=== PATIENT | male | born 1995 | race Hispanic/Latino ===

== ENCOUNTER 2017-08-12 09:27 | Emergency (ER) | payer OTHER ==
[~2017-08-12] VITALS: Ht 175.3 cm; Wt 79.4 kg
[2017-08-12] MEDS ORDERED: PROTONIX40 MG PO (11:06)
== END 2017-08-12 11:40 | disposition home or self-care (01) ==
LOC: ED 09:27
DX: K21.9 Gastro-esophageal reflux disease without esophagitis (principal)
CPT/HCPCS: 80053; 81001; 82150; 83690; 85025; 99283

== ENCOUNTER 2023-07-17 11:08 | Emergency (ER) | payer OTHER ==
[~2023-07-17] VITALS: Ht 175.3 cm; Wt 72.6 kg
[~2023-07-17 11:08] MED LIST: PROTONIX40 MG PO
--- OUTSIDE RECORDS SUMMARY | 2023-07-17 11:16 | XMS ---
PreManage Notification: LINDA MCCLENDON Security Hand Painter Events No recent Security Events currently on file CRITERIA MET - Group Notification CARE PROVIDERS -Komal- Dentist: Junior Network Administrator [facility] PHONE: [phone] Tayler Sharma-Jarod Nurse Practitioner: Family Current PHONE: [phone] Dalton has no Care Guidelines for this patient. EFroylan VISIT COUNT (12 MO.) 1 [facility] TOTAL 1 NOTE: Visits indicate total known visits. ED/UCC VISIT TRACKING (12 MO.) 07/17/2023 11:09 [facility] [place] TYPE: Emergency COMPLAINT: - MEDICATION REACTION INPATIENT VISIT TRACKING (12 MO.) No inpatient visits to display in this time frame [email or web address]
[2023-07-17] MEDS ORDERED: PROPRANOLOL HCL10 MG PO (13:22)
[2023-07-17] MEDS ORDERED: ZOLOFT50 MG PO (13:22)
[2023-07-17 14:05] LABS: BASOPHILS 1.2 % (0-2); EOSINOPHILS 0.8 % (0-6); HEMATOCRIT 49.2 % (35.0-50.0); LYMPHOCYTES 12.3 % (24-44); MCH 32.5 (27-36); MCHC 34.4 g/dl (30-36); MCV 94.5 fl (81-99); MONOCYTES 13.6 % (0-12); NEUTROPHILS 72.1 % (39-80); PLATELET COUNT 132 K/uL (140-440); RBC 5.21 M/ul (4.3-5.7); RDW 12.7 (10.5-15.0)
[2023-07-17 14:31] LABS: MAGNESIUM 1.6 mg/dL (1.8-2.4); TSH, 3RD GENERATION 4.03 uIU/mL (0.358-3.740)
[2023-07-17 15:26] LABS: ALBUMIN 3.9 g/dL (3.4-5.0); ALBUMIN/GLOBULIN RATIO 0.91 (1.1-2.4); ANION GAP 14.1 (7-21); BILIRUBIN, TOTAL 2.3 ng/dL (0.2-1.0); BUN/CREATININE RATIO 14.86 (6.0-28.6); CALCIUM 9.8 mg/dL (8.5-10.1); CREATININE, SERUM 0.74 mg/dL (0.70-1.30); POTASSIUM 4.1 mmol/L (3.5-5.1); PROTEIN, TOTAL 8.2 g/dL (6.4-8.2)
[2023-07-17] MEDS ORDERED: ONDANSETRON ODT8 MG PO (15:45)
[2023-07-17] MEDS ORDERED: CHLORDIAZEPOXID25 MG PO (15:45)
[2023-07-17 15:57] VITALS: BP 170/108
== END 2023-07-17 15:57 | disposition home or self-care (01) ==
LOC: ED 11:08
PROVIDERS: Emergency Medicine
DX: F10.10 Alcohol abuse, uncomplicated (principal); Z79.899 Other long term (current) drug therapy
CPT/HCPCS: 36415; 80053; 83735; 84443; 85025; 99283; A9270-GY; G0480

== ENCOUNTER 2024-05-15 22:24 | Emergency (ER) | payer OTHER ==
[~2024-05-15] VITALS: Ht 180.3 cm; Wt 77.0 kg
--- OUTSIDE RECORDS SUMMARY | 2024-05-15 22:25 | XMS ---
PreManage Notification: LINDA MCCLENDON Security Bus Greaser Events No recent Security Events currently on file CRITERIA MET - Group Notification CARE PROVIDERS -[facility]ajma Dental+ Dentist: Vrt Mechanic [facility] PHONE: [phone] -Komal- Dentist: Vrt Mechanic [facility] PHONE: [phone] Dalton has no Care Guidelines for this patient. Mathew VISIT COUNT (12 MO.) 2 [facility] 2 [facility] TOTAL 4 NOTE: Visits indicate total known visits. ED/UCC VISIT TRACKING (12 MO.) 05/15/2024 22:24 [facility] [place] TYPE: Emergency COMPLAINT: - WEAKNESS 08/23/2023 08:[address] 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
[2024-05-15] MEDS ORDERED: MULTIVITAMINS 10 ML,FOLIC ACID 1 MG,THIAMINE HCL 100 MG in SODIUM CHLORIDE 0.9% 1,000 ML IV ONE (23:30)
[2024-05-15] MEDS ORDERED: FOLIC ACID 1 MG/0.2 ML ML ONE (23:31)
[2024-05-16 00:04] LABS: MCH 32.3 (27-36); MCHC 33.6 g/dl (30-36)
[2024-05-16 00:06] LABS: BASOPHILS 3.4 % (0-2); EOSINOPHILS 0.5 % (0-6); HEMATOCRIT 43.6 % (35.0-50.0); HEMOGLOBIN 14.7 g/dL (12.0-18.0); LYMPHOCYTES 11.9 % (24-44); NEUTROPHILS 73.2 % (39-80); RBC 4.54 M/ul (4.3-5.7); RDW 14.8 (10.5-15.0)
[2024-05-16 00:07] LABS: ALBUMIN 3.1 g/dL (3.4-5.0); ALBUMIN/GLOBULIN RATIO 0.56 (1.1-2.4); ANION GAP 14.5 (7-21); BILIRUBIN, TOTAL 4.1 ng/dL (0.2-1.0); BUN/CREATININE RATIO 8.86 (6.0-28.6); CALCIUM 8.6 mg/dL (8.5-10.1); CREATININE, SERUM 0.79 mg/dL (0.70-1.30); POTASSIUM 3.5 mmol/L (3.5-5.1); PROTEIN, TOTAL 8.6 g/dL (6.4-8.2)
[2024-05-16 00:09] LABS: PLATELET COUNT 35 K/uL (140-440)
[2024-05-16] MEDS ORDERED: MAGNESIUM OXIDE 400 MG TABLET PO ONE (00:45)
[2024-05-16 02:15] VITALS: BP 143/99
== END 2024-05-16 02:20 | disposition home or self-care (01) ==
LOC: ED 22:24
PROVIDERS: Internal Medicine
DX: F10.129 Alcohol abuse with intoxication, unspecified (principal); Y90.8 Blood alcohol level of 240 mg/100 ml or more; E86.0 Dehydration; I10 Essential (primary) hypertension; Z79.899 Other long term (current) drug therapy
CPT/HCPCS: 36415; 80053; 85025; 85060; 96365; 96366; 99284-25; G0480; J3411; J7030

== ENCOUNTER 2024-08-31 08:31 | Emergency (ER) | payer OTHER ==
[~2024-08-31] VITALS: Ht 180.3 cm; Wt 71.8 kg
[~2024-08-31 08:31] MED LIST changes: +CHLORDIAZEPOXID25 MG PO; +KLONOPIN1 MG PO; +ONDANSETRON ODT8 MG PO; +PROPRANOLOL HCL10 MG PO; +ZOLOFT50 MG PO
--- OUTSIDE RECORDS SUMMARY | 2024-08-31 08:38 | XMS ---
PreManage Notification: LINDA MCCLENDON Security Seed Specialist Events No recent Security Events currently on file CRITERIA MET - Group Notification CARE PROVIDERS -Najma Dental+ Dentist: Seeing Eye Dog Trainer [facility] Komal PHONE: [phone] -Najma Dental+ Dentist: Seeing Eye Dog Trainer [facility] PHONE: [phone] -Komal- Dentist: Seeing Eye Dog Trainer Current [facility] PHONE: [phone] Dalton has no Care Guidelines for this patient. E.DMarco Antonio VISIT COUNT (12 MO.) 2 [facility] TOTAL 2 NOTE: Visits indicate total known visits. ED/UCC VISIT TRACKING (12 MO.) 08/31/2024 08:32 [facility] [place] TYPE: Emergency COMPLAINT: - SLEEP PROBLEM 05/15/2024 22:24 [facility] [place] TYPE: Emergency COMPLAINT: - WEAKNESS DIAGNOSES: - Alcohol abuse with intoxication, unspecified - Blood alcohol level of 240 mg/100 ml or more - Dehydration - Essential (primary) hypertension - Other intermodal dispatcher (current) drug therapy - Weakness INPATIENT VISIT TRACKING (12 MO.) No inpatient visits to display in this time frame [email or web address]
[2024-08-31] MEDS ORDERED: LORazepam 2 MG/ML VIAL IV ONE ×2 (10:15→11:45)
[2024-08-31] MEDS ORDERED: LORazepam 1 MG TAB PO ONE (10:15)
[2024-08-31] MEDS ORDERED: SODIUM CHLORIDE 0.9% 1,000 ML IV PRN (10:15)
[2024-08-31 10:45] LABS: BILIRUBIN, URINE POSITIVE (negative); BLOOD/HGB, URINE NEGATIVE (Negative); KETONE, URINE SMALL (Negative); LEUK ESTERASE, URINE TRACE (negative); NITRITE, URINE POSITIVE (negative); PH, URINE 6.5 (5-7)
[2024-08-31 10:50] LABS: BASOPHILS 1.8 % (0-2); HEMATOCRIT 38.8 % (35.0-50.0); HEMOGLOBIN 13.3 g/dL (12.0-18.0); LYMPHOCYTES 8.7 % (24-44); MCH 34.3 (27-36); MCHC 34.3 g/dl (30-36); MONOCYTES 12.5 % (0-12); RBC 3.88 M/ul (4.3-5.7); RDW 14.8 (10.5-15.0)
[2024-08-31 10:55] LABS: BACTERIA, URINE 1+ /hpf (negative); CASTS, URINE NONE SEEN \\lpf; COLLECTION TYPE, URINE CLEAN CATCH; CRYSTALS, URINE NONE SEEN (0-1+); EPITHELIAL CELLS, URINE SQUAMOUS 1+ /lpf (0-1+); RED BLOOD CELLS, URINE 0-1 /hpf (0-5); REFLEX CULTURE, URINE Yes (No); WHITE BLOOD CELLS, URINE 21-40 /HPF (0-5)
[2024-08-31 11:01] LABS: INR 1.61 (0.80-1.30); PROTIME 18.8 Sec (11.2-14.2)
[2024-08-31 11:06] LABS: ALBUMIN/GLOBULIN RATIO 0.48 (1.1-2.4); ANION GAP 13.1 (7-21); BILIRUBIN, TOTAL 8.5 ng/dL (0.2-1.0); BUN/CREATININE RATIO 9.33 (6.0-28.6); CALCIUM 9.5 mg/dL (8.5-10.1); CREATININE, SERUM 0.75 mg/dL (0.70-1.30); POTASSIUM 3.1 mmol/L (3.5-5.1); PROTEIN, TOTAL 9.2 g/dL (6.4-8.2)
[2024-08-31 11:12] LABS: PLATELET COUNT 35 K/uL (140-440)
[2024-08-31] MEDS ORDERED: TRAMADOL HCL50 MG PO (12:15)
[2024-08-31 12:32] VITALS: BP 102/61
[2024-08-31] MEDS ORDERED: TRAZODONE HCL50 MG PO (15:00)
== END 2024-08-31 12:32 | disposition home or self-care (01) ==
LOC: ED 08:31
PROVIDERS: Emergency Medicine
DX: G47.00 Insomnia, unspecified (principal); F10.139 Alcohol abuse with withdrawal, unspecified; K72.90 Hepatic failure, unspecified without coma; I10 Essential (primary) hypertension
CPT/HCPCS: 36415; 80053; 81001; 83690; 85025; 85060; 85610; 87088; 96374; 96376; 99283-25; J2060; J7030

== ENCOUNTER 2024-08-31 14:42 | Inpatient (IN) | payer OTHER ==
[2024-08-31] VITALS (8 sets, daily range): BP systolic 100–154; BP diastolic 56–114
[~2024-08-31] VITALS: Ht 180.3 cm; Wt 73.0 kg
[~2024-08-31 14:42] MED LIST changes: +TRAMADOL HCL50 MG PO
--- OUTSIDE RECORDS SUMMARY | 2024-08-31 14:49 | XMS ---
PreManage Notification: LINDA MCCLENDON Security Heel Brusher Events No recent Security Events currently on file CRITERIA MET - Group Notification - [facility] - 2 Visits in 30 Days CARE PROVIDERS -Najma Dental+ Dentist: Manager Environmental Affairs Current [facility] PHONE: [phone] -Najma Dental+ Dentist: Manager Environmental Affairs [facility] PHONE: [phone] -Komal- Dentist: Manager Environmental Affairs Current [facility] PHONE: [phone] Dalton has no Care Guidelines for this patient. E.D. VISIT COUNT (12 MO.) 3 [facility]ORM [facility] TOTAL 3 NOTE: Visits indicate total known visits. ED/UCC VISIT TRACKING (12 MO.) 08/31/2024 14:43 [facility] [place] TYPE: Emergency COMPLAINT: - FEVER/HALLUCINATIONS 08/31/2024 08:32 [facility] [place] TYPE: Emergency COMPLAINT: - SLEEP PROBLEM 05/15/2024 22:[address] [facility] [place] TYPE: Emergency COMPLAINT: - WEAKNESS DIAGNOSES: - Alcohol abuse with intoxication, unspecified - Blood alcohol level of 240 mg/100 ml or more - Dehydration - Essential (primary) hypertension - Other detention (current) drug therapy - Weakness INPATIENT VISIT TRACKING (12 MO.) No inpatient visits to display in this time frame [email or web address]
[2024-08-31] MEDS ORDERED: TRAZODONE HCL50 MG PO (15:00)
[2024-08-31] MEDS ORDERED: CEFTRIAXONE/SODIUM CHLORIDE 1 GM/100 ML PIGGYBACK IV ONE (15:15)
[2024-08-31 15:41] LABS: AMPHETAMINES, URINE NEGATIVE (NEGATIVE); BARBITURATES, URINE NEGATIVE (NEGATIVE); BENZODIAZEPINE, URINE NEGATIVE (NEGATIVE); BUPRENORPHINE, URINE NEGATIVE (NEGATIVE); CANNABINOID, URINE POSITIVE (NEGATIVE); COCAINE, URINE NEGATIVE (NEGATIVE); ECSTASY, URINE NEGATIVE (NEGATIVE); FENTANYL, URINE NEGATIVE (NEGATIVE); METHADONE, URINE NEGATIVE (NEGATIVE); OPIATES, URINE POSITIVE (NEGATIVE); OXYCODONE, URINE NEGATIVE (NEGATIVE); PHENCYCLIDINE, URINE NEGATIVE (NEGATIVE)
[2024-08-31] MEDS ORDERED: LACTULOSE 20 GM/30 ML CUP PO ONE (16:15)
[2024-08-31] MEDS ORDERED: LORazepam 2 MG/ML VIAL IV ONE (16:15)
[2024-08-31 17:15] LABS: BILIRUBIN, DIRECT 4.1 mg/dL (0.0-0.2); BILIRUBIN, INDIRECT 3.9 (0.1-0.7)
[2024-08-31] MEDS ORDERED: PHENOBARBITAL SOD 130 MG/ML VIAL IV ONE (17:15)
[2024-08-31] MEDS ORDERED: LORazepam 2 MG/ML VIAL IV/IM PRN ×2 (17:15→22:00)
[2024-08-31] MEDS ORDERED: THIAMINE HCL 100 MG,FOLIC ACID 1 MG,MULTIVITAMINS 10 ML in SODIUM CHLORIDE 0.9% 1,000 ML IV ONE (17:15)
--- NOTE | 2024-08-31 17:40 | NUR ---
PT ARRIVES TO FLOOR VIA STRETCHER WITH ED RN AND SISTER. PT PIVOT TRANSFERS TO BED WITH SOME SHAKYNESS NOTED. PT FOLLOWING COMANDS BUT INTERMITANTLY DISORIENTED, AND ATTENDING TO VISUAL HALUCINATIONS. ADMISSION ASSESSMENT STARTED.
--- NOTE | 2024-08-31 18:26 | NUR ---
ADMISSION ASSESSMENT COMPLETE - HEALTH HISTORY QUESTIONS COMPLETED WITH SISTERS ASSISTANCE. PT DROWSY IN BED, REDIRECTABLE AND FOLLOWS COMANDS. TACHICARDIC AT REST, 120'S. CIWA 15 PRIOR TO PHENOBARBITAL ADMINISTRATION SIGNIFICANT FOR VISUAL HALLUCINATIONS, DISORIENTATION AND LIGHT SENSITIVE. PT C/O ABD PAIN WITH PALPATION. REPORTS FREQUENT DIARHEA AND ANTACID USE. SISTER STATES PT OFTEN HAS BLOOD ON PILLOW IN MORNING FROM COUGHING AT NIGHT. BED ALARM ON, SISTER AT BEDSIDE HELPING REDIRECT PT.
--- NOTE | 2024-08-31 19:05 | NUR ---
RN IN ROOM TO RESPOND TO CALL LIGHT - PT NOTED TO HAVE BLOOD IN MOUTH, WITHOUT VISUALIZED INJURY. POTENTIALLY AFTER COUGHING. MD IN ROOM TO ASSESS. SISTER ENDORSES THIS HAPPENS FREQUENTLY. CT ORDERED.
--- NOTE | 2024-08-31 19:20 | NUR ---
PT ASSISTED UP TO BED SIDE COMMODE - 2 PERSON ASSIST. HR ELEVATED TO 140 WITH STANDING. PT ABLE TO FOLLOW COMMANDS WITH REPITITION. BACK TO BED WITH BED ALARM ON. STAFF IN SIGHT OF ROOM WITH CURTAIN OPEN.
--- NOTE | 2024-08-31 20:00 | NUR ---
PT TAKEN DOWN TO IMAGING FOR CT SCAN OF ABD/PELVIS/CHEST. PT IS CALM, CONFVUSED BUT COOPERATIVE.
--- NOTE | 2024-08-31 20:15 | NUR ---
1MG IV ATIVAN GIVEN FOR SX OF WITHDRAWAL, PT HAS BEGUN TO BE MORE RESTLESS, DOES REPORT HALLUCINATIONS, DENIES HEADACHE, DENIES NAUSEA, VERY SLIGHT TREMOR NOTED.
[2024-08-31] MEDS ORDERED: LACTULOSE 20 GM/30 ML CUP PO SCH (21:00)
--- NOTE | 2024-08-31 21:12 | NUR ---
PT CONT TO ESCALATE IN AGITATION, TRYING TO GET OUT OF BED, VERY INSISTENT ON LEAVING, NOT REDIRECTABLE AND NOT ORIENTED AT THIS TIME. MD NOTIFIED, PRECEDEX DRIP STARTED, SEE FLOWSHEET.
--- NOTE | 2024-08-31 21:59 | NUR ---
UPDATE MD ON PTS NAUSEA AND PRECEDEX DRIP, ORDER GIVEN FOR ZOFRAN PRN.
[2024-08-31] MEDS ORDERED: ondansetron HCL 4 MG/2 ML VIAL IV PRN (22:00)
--- NOTE | 2024-08-31 22:50 | NUR ---
PT RESTFUL, BED ALARM ON, FAMILY IN ROOM. PRECEDEX DRIP CONT TO INFUSE.
--- NOTE | 2024-08-31 23:00 | NUR ---
PT HAS BEEN LYING IN BED, NOT TRYING TO GET UP. HE HAS BEEN MAKING FREQUENT VOCAL SOUNDS. AT ONE POINIT, FAMILY WAS ASKING QUESTIONS REGARDING THE PLAN OF CARE FOR THE NIGHT WHEN THE PT SUDDENLY STARTED MAKING RETCHING SOUNDS, GURGLING NOTED IN THROAT, MOUTH HAD DONOVAN RED BLOOD. PT WAS IMMEDIATELY REPOSITIONED UP FOR AIRWAY PROTECTION AND MOUTH WAS SUCTIONED OF SCANT AMT OF BLOOD. MOUTH CLEANED OUT WITH WASHCLOTH TO TRY TO DETERMINE SOURCE, IT APPEARS THAT PTS GUMS MIGHT POSSIBLY BE OOZING BLOOD. PT LEFT IN POSITION FOR AIRWAY PROTECTION WITH RN TO REMAIN AT BEDSIDE. 4MG IV ZOFRAN WAS GIVEN AND RETCHING STOPPED, PT STILL NEEDING OCC ORAL SUCTION OF SECRETIONS AND BLOOD. PRECEDEX DRIP WAS INITIALLY TURNED DOWN AND THEN OFF. PT REMAINS ON CONT CARDIAC/SPO2 MONITORING. SPO2 99% ON ROOM AIR, VSS.
[2024-09-01] VITALS (33 sets, daily range): BP systolic 88–134; BP diastolic 47–91
--- NOTE | 2024-09-01 01:54 | NUR ---
PT REMAINS SLEEPING WITH PRECEDEX DRIP OFF. MOTHER IS STAYING THE NIGHT, SISTER LEAVING NOW. PT SNORING LIGHTLY, SPO2 98%, HR 80'S, RR 16, NO SECRETIONS NOTED IN MOUTH. BED ALARM ON.
--- NOTE | 2024-09-01 04:50 | NUR ---
PT HAD CONTINUED TO REST IN BED WITH NO ATTEMPTS TO TRY TO GET UP. PT WOKE AT 0405. HE SEEMED MUCH LESS AGITATED BEFORE HE WENT TO SLEEP, HE INDICATES NEED TO USE BATHROOM. HE WAS INC LOOSE STOOL ON THE WAY TO THE BATHROOM, SAT ON TOILET AND HAD LARGE LOOSE STOOL THEN WAS TAKEN TO SHOWER TO BE CLEANED UP. PT WAS ABLE TO ASSIST WITH SHOWERING HIMSELF, STILL A LITTLE UNSTEADY ON HIS FEET, SHOWER CHAIR WAS USED FOR TRANSPORT. CIWA AT THIS TIME IS 12, AFTER SHOWER PT DENIES NAUSEA, DOES REPORT HEADACHE BUT STATES "IM TIRED, I WANT TO GO TO SLEEP". PT BACK TO SLEEP WITH BED RAILS UP AND BED ALARM ON.
--- NOTE | 2024-09-01 05:25 | NUR ---
AM LABS DRAWN FROM SALINE LOCK. PT STATES "IM STARTING TO FEEL THE WITHDRAWAL," NOT ABLE TO CLARIFY WHAT SX HE IS FEELING. HE DENIES HEADACHE, NAUSEA, HALLUCINATIONS. 2MG IV ATIVAN GIVEN. BED ALARM ON. REMAINS WITH RN ONE/ONE.
[2024-09-01 05:27] LABS: BASOPHILS 1.5 % (0-2); EOSINOPHILS 2.2 % (0-6); HEMATOCRIT 33.9 % (35.0-50.0); HEMOGLOBIN 11.7 g/dL (12.0-18.0); LYMPHOCYTES 11.1 % (24-44); MCH 34.6 (27-36); MCHC 34.7 g/dl (30-36); MCV 99.8 fl (81-99); NEUTROPHILS 70.2 % (39-80); RBC 3.39 M/ul (4.3-5.7)
[2024-09-01 05:36] LABS: PLATELET COUNT 39 K/uL (140-440)
[2024-09-01 06:02] LABS: ALBUMIN 2.6 g/dL (3.4-5.0); ALBUMIN/GLOBULIN RATIO 0.48 (1.1-2.4); ANION GAP 14.3 (7-21); BILIRUBIN, TOTAL 8.1 ng/dL (0.2-1.0); BUN/CREATININE RATIO 10.58 (6.0-28.6); CALCIUM 8.7 mg/dL (8.5-10.1); CREATININE, SERUM 0.85 mg/dL (0.70-1.30); MAGNESIUM 1.8 mg/dL (1.8-2.4); POTASSIUM 3.3 mmol/L (3.5-5.1)
[2024-09-01] MEDS ORDERED: POTASSIUM CHLORIDE 10 MEQ TABCR PO ONE (07:00)
[2024-09-01] MEDS ORDERED: DEXTROSE 5% IV ONE (07:30)
[2024-09-01] MEDS ORDERED: ACETYLCYSTEINE IV ONE (07:30)
--- NOTE | 2024-09-01 07:30 | NUR ---
1;1 STAFF AT BEDSIDE, REPORT FROM SUJATA, SHE SPOKE WITH AND IS PUTTING IN NEW ORDERS.
[2024-09-01] MEDS ORDERED: FOLIC ACID 1 MG TAB PO SCH (08:00)
[2024-09-01] MEDS ORDERED: THIAMINE HCL 100 MG TAB PO SCH (08:00)
[2024-09-01 08:17] LABS: INR 1.79 (0.80-1.30); PROTIME 20.4 Sec (11.2-14.2)
[2024-09-01 08:50] LABS: ABO A; RH NEGATIVE
[2024-09-01 08:59] LABS: ABO A; ANTIBODY SCREEN NEGATIVE; RH NEGATIVE
[2024-09-01] MEDS ORDERED: CEFTRIAXONE/SODIUM CHLORIDE 1 GM/100 ML PIGGYBACK IV SCH (09:00)
--- NOTE | 2024-09-01 09:06 | NUR ---
PT CIWA HIGH, THINKS WE ARE IN AN APPARTMENT, DOES NOT KNOW EVENT OR PLACE. MOM IN ROOM PT UP IN BED EATING MEAL WITH SITTER IN ROOM.
--- NOTE | 2024-09-01 09:23 | NUR ---
pt awake hob up doing oral care - gums appear to have old dry blood on lips and mouth dr aware.
[2024-09-01 09:25] LABS: ACETAMINOPHEN 0 ug/mL (10-30)
--- NOTE | 2024-09-01 09:39 | NUR ---
IN ROOM WITH PT AND MOM, RN PRESENT. PT CONFUSED.
--- NOTE | 2024-09-01 09:41 | NUR ---
[place] VIDEO INTERPRETATION TO PT AND MOTHER WITH
--- NOTE | 2024-09-01 09:59 | NUR ---
pt unsteady up to br with 1-2 person assist to amb. safely to toilet - liquid bm noted. pt back to bed, hr 124. bed alarm on and sitter in room with mom and patient back to bed. he is confused, denies hallucinations or head ache, not oriented to situation, event, time, date or place.
[2024-09-01] MEDS ORDERED: LORazepam 2 MG/ML VIAL IV/IM PRN ×2 (11:30→17:30)
[2024-09-01] MEDS ORDERED: PHARMACY RENAL DOSE ADJUSTMENT 1 DOSE MISC PO SCH (12:00)
--- NOTE | 2024-09-01 13:45 | NUR ---
Spoke with pt and his girlfriend, Hailey. Mom is sleeping on the couch. Pt lives with his mom and girfriend in [place]. Pt does not use any DME. Pt admitted for Hepatic encephalopathy and is jaudiced. Discussed with pt his alcohol use and he feels he over uses alcohol. Pt currently drinking 1 pint of whisky per day. Pt is agreeable to IP alcohol rehab and speaking with [facility]. Pt in need of a pcp. Pt [facility] like [facility] use [facility] and I will send his chart requesting a pcp. I will contact [facility]. It is unclear if they will be able to visit as yesterday they had two peer people out for the week.
--- NOTE | 2024-09-01 14:30 | NUR ---
Called and spoke with Solange at [facility]. They do not have anyone to visit today. They can contact the pt by phone. I gave them his number and they will call him today.
--- NOTE | 2024-09-01 15:20 | NUR ---
UR CLINICAL REVIEW: [facility]- MEETS INPT CRITERIA FOR FOR AMS. ODS [facility] INPT 08/31/24 @ 1701 ORDER MATCHES REG WILL SEND CLINICAL FOR AUTH REVIEW DISCHARGE PENDING FURTHER EVALUATION 09/03/24
--- NOTE | 2024-09-01 15:21 | NUR ---
CURRENT ILLNESS PRINTED EDUCATION GIVEN TO PT AND GIRLFRIEND IN TURKISH PER REQUEST, AND TO MOTHER IN PERSIAN. PT GIVEN ENULOSE AND DISCUSSED EDUCATION. CALL LIGHT IN REACH, FAMILY AT SIDE.
--- NOTE | 2024-09-01 16:07 | NUR ---
Chart faxed to [facility] requesting Luis Thompson NP as pts pcp.
--- NOTE | 2024-09-01 16:55 | NUR ---
PT INC OF LOOSE STOOL, AMB TO BR WITH MAX ASSIST. UNSTEADY, CONFUSED, MOM IN ROOM. PT BACK TO BED WITH ALARM ON AND LINEN CHANGE.
--- NOTE | 2024-09-01 17:13 | NUR ---
this rn spoke with dr nash about pt consusion and hallucinations increasing. pt is "making papusa" in his bed, mom at side admits that pt is hallucinating. and pulling at iv. wrapped iv. pt hob up high for meal. rn cut food to bite size and pt is eating meal with family at side. dr advised to increase ativan.
--- NOTE | 2024-09-01 17:38 | NUR ---
PT AMB WITH MAX ASSIST TO HAVE LOOSE BM, AMB BACK TO BED, ALARM ON.
--- NOTE | 2024-09-01 18:50 | NUR ---
PT EYES CLOSED, GF AT BEDSIDE, RESP RATE 18, HR 99, BED ALARM ON. BLANKET AND PILLOW TO GF AND MOM.
--- NOTE | 2024-09-01 19:01 | NUR ---
RN CALLED AND ASKED TO SEE PT AND CONCERNED FOR ACITES, PT VERY ANXIOUS, AND RN ASSISTED PT WITH IS, SL IV PER .
--- NOTE | 2024-09-01 20:00 | NUR ---
NURSE PERFORMED ASSESSMENT AND OBTAINED VITAL SIGNS. PATIENT STILL CONFUSED AND AGITATED. PATIENT ATTEMPTING TO GET OUT OF BED. NURSE AND PATIENT'S GIRLFRIEND ASSISTED PATIENT OUT OF BED. PATIENT HAD ONCE EPISODE OF DIARRHEA - MEDIUM IN SIZE, BROWN IN COLOR. PATIENT ALSO VOIDED 1 TIME. PATIENT CONFUSED. ALERT TO SELF AND PLACE. PATIENT DISORIENTED TO TIME AND SITUATION. PATIENT REQUIRED FREQUENT CUES AND VERBAL REDIRECTION. NURSE PROVIDED PERICARE. NURSE ASSISTED PATIENT BACK TO BED. CALL LIGHT AND BEDSIDE TABLE WITHIN REACH. PATIENT'S MOTHER AND GIRLFRIEND REMAIN AT BEDSIDE. NURSE TO MEDICATE PATIENT PER CIWA SCORE ORDERED.
--- NOTE | 2024-09-01 22:33 | NUR ---
PT UP TO BR AND BACK TO BED, 1 PA. PT TOLERATED WELL. IV FLUIDS INFUSING PER ORDER. PT AND FAMILY STATE NO OTHER NEEDS. CALL LIGHT IN REACH, BED RAILS UP, FMAILY IN ROOM.
[2024-09-02] VITALS (24 sets, daily range): BP systolic 84–137; BP diastolic 46–92
--- NOTE | 2024-09-02 | NUR ---
PATIENT BACK IN BED FROM USING BATHROOM. PATIENT ALERT AND ORIENTED TO SELF, PLACE & SITUATION AT THIS TIME. PATIENT DISORIENTED TO TIME OF DAY AND DATE. NURSE PERFORMED ASSESSMENT AND OBTAINED VITAL SIGNS. VITAL SIGNS STABLE. NURSE OBSERVED PATIENT TO HAVE A SLIGHTLY UNSTEADY GAIT. PATIENT IS A ONE PERSON ASSIST WHEN AMBULATING TO THE BATHROOM. PATIENT DENIES ANY PAIN AT THIS TIME. CIWA SCORE 6. CALL LIGHT AND BEDSIDE TABLE WITHIN REACH. PATIENT'S MOTHER AND GIRLFRIEND REMAIN AT THE BEDSIDE.
--- NOTE | 2024-09-02 02:04 | NUR ---
FAMILY CALLS TO ASK FOR ATIVAN. PT STATING HE WANTS TO LEAVE. PT ORIENTED TO PERSON ONLY. PT ASKED IF HE WANTS A MED TO HELP HIM CALM AND GET THROUGH DETOX, PT STATES YES. PT HAS VISIBLE TREMOR, ANXIOUS, SWEATING AND CAN'T ANSWER SOME QUESTIONS.PRN ATIVAN PROVIDED. PT AND FAMILY STATE NO OTHER NEEDS AT THIS TIME. FAMILY IN ROOM, DOOR AND CURTAIN OPEN.
--- NOTE | 2024-09-02 04:00 | NUR ---
PATIENT IN BED; NURSE COMPLETED ASSESSMENT AND OBTAINED VITAL SIGNS; PATIENT AFEBRILE; NURSE ASSISTED PATIENT TO AMBULATE TO BATHROOM; PATIENT HAD VOIDED AND HAD ONE EPISODE OF LOOSE STOOL. PATIENT DENIES HAVING ANY HEADACHE OR PAIN AT THIS TIME. PATIENT DENIES HAVING ANY NAUSEA AT THIS TIME. PATIENT'S GIRLFRIEND ASSISTED PATIENT WITH PERICARE. NURSE AND PATIENT'S GIRLFRIEND ASSISTED PATIENT BACK TO BED. PATIENT AMBULATED WITHOUT DIFFICULTY; GAIT STEADY. PATIENT CONTINUES TO BE ONE PERSON ASSIST. NURSE COMPLETED CIWA; CIWA SCORE 6. PATIENT IN BED. CALL LIGHT AND BEDSIDE TABLE WITHIN REACH.
[2024-09-02 05:27] LABS: BASOPHILS 0.3 % (0-2); EOSINOPHILS 1.9 % (0-6); HEMATOCRIT 34.2 % (35.0-50.0); HEMOGLOBIN 12.1 g/dL (12.0-18.0); LYMPHOCYTES 13.9 % (24-44); MCH 34.8 (27-36); MCHC 35.2 g/dl (30-36); MCV 98.7 fl (81-99); MONOCYTES 19.6 % (0-12); NEUTROPHILS 64.3 % (39-80); PLATELET COUNT 59 K/uL (140-440); RBC 3.47 M/ul (4.3-5.7); RDW 14.9 (10.5-15.0)
[2024-09-02 05:35] LABS: INR 1.91 (0.80-1.30)
[2024-09-02 05:42] LABS: ALBUMIN 2.4 g/dL (3.4-5.0); ALBUMIN/GLOBULIN RATIO 0.44 (1.1-2.4); ANION GAP 12.1 (7-21); BILIRUBIN, TOTAL 6.6 ng/dL (0.2-1.0); BUN/CREATININE RATIO 5.95 (6.0-28.6); CALCIUM 8.7 mg/dL (8.5-10.1); CREATININE, SERUM 0.84 mg/dL (0.70-1.30); POTASSIUM 3.1 mmol/L (3.5-5.1); PROTEIN, TOTAL 7.8 g/dL (6.4-8.2)
--- NOTE | 2024-09-02 08:00 | NUR ---
pt awake for meal, family at bedside helping to calm and re direct pt. ramin is picking at iv and monitors, confused on date, time, place, event and trying to get out of bed setting off alarm inspite of family and staff at side re directing. pt denies pain and denies headache. eats meal well.
--- NOTE | 2024-09-02 08:54 | NUR ---
pt educated and demonstrated is use. room air sats 99% with use. sitting in bed pulling at monitors. high ciwa score - ativan given. family at side alarm on.
[2024-09-02] MEDS ORDERED: POTASSIUM CHLORIDE 10 MEQ TABCR PO ONE ×2 (09:00→13:00)
--- NOTE | 2024-09-02 09:33 | NUR ---
amb pt up to bsc, void and bm loose. pt very confused and unsteady - poor at following directions. family at side. hr icreased 122, back to bed after linen change, hair wash, bed bath and tiana care.
--- NOTE | 2024-09-02 09:47 | NUR ---
pt trying to eat and put cords and monitor in mouth - re oriented and adjusted monitors. pt family at side. call light in reach and visible to rn station. bed alarm on.
--- NOTE | 2024-09-02 10:25 | NUR ---
in room with pt, mother and girlfriend.
[2024-09-02] MEDS ORDERED: LACTATED RINGER'S 1,000 ML IV ONE (10:45)
--- NOTE | 2024-09-02 11:15 | NUR ---
Pt sleeping. Multiple family members in the room. Sister, Marnie, states she has called [facility] and left messages. Updated they are short of staff and working in other offices. Discussed, we really cannot proceed until Mike wakes up and is agreeable to treatment. Marnie interpreted this for her mom. Girlfriend is at the bedside and has the pts phone. Again, let them know, I spoke with Solange from [facility] yesterday and she had stated a Peer would call them.
--- NOTE | 2024-09-02 13:51 | NUR ---
pt resting eyes closed, hr 85, resp 16, girlfriend in room. visible to rn at desk.
--- NOTE | 2024-09-02 14:14 | NUR ---
PT NOT AVAILABLE FOR VISIT. PROVIDED PRAYER.
--- NOTE | 2024-09-02 14:15 | NUR ---
pt resting, eyes closed, hr 82, update to dr nash and dc corporate meeting planner - records from last pcp visit and medication list. - pt and family reported that he stopped taking medication and hasn't had labs as scheduled or been back to provider. girlfriend admits to pt recent use of cocaine and usual history of use. notified as he is in withdrawls at this time. precedex drip continues and pt is resting. case managment aware.
[2024-09-02] MEDS ORDERED: POTASSIUM CHLORIDE 40 MEQ in DEXTROSE 5% 250 ML IV ONE (14:45)
[2024-09-02] MEDS ORDERED: LACTULOSE 20 GM/30 ML CUP PO SCH (15:00)
--- NOTE | 2024-09-02 15:30 | NUR ---
pt moving around in bed, picking at iv, redirected, falls asleep easily, bed alarm on. kcl iv on pump see emar - site wnl.
[2024-09-02 16:17] LABS: HEPATITIS A ANTIBODY, IGM Negative (Negative); HEPATITIS B CORE ANTIBODY, IGM Negative (Negative); HEPATITIS B SURFACE ANTIGEN Negative (Negative); HEPATITIS C AB CIA INTERP Negative (Negative); HEPATITIS C ANTIBODY CIA INDEX 0.17 IV (())
--- NOTE | 2024-09-02 16:53 | NUR ---
rn awakened pt to void - 350 ml of dark urine out. pt drinking abida. ensure with family at side. pt continues to be disoriented and confused to all - he does know self and family. pt eating cheesburger and drinking well.
--- NOTE | 2024-09-02 18:37 | NUR ---
pt soundly sleeping resp rate 18, hr 85, bp low at 84/46 with pt on right side, and bp cuff on left arm up. precedex infusion stopped. pt family at side, pt visible to rn. discussed with michelle krishna.
--- NOTE | 2024-09-02 18:56 | NUR ---
pt awakened and repositioned to back, bp 91/77 restarted drip as pt was picking at lines, confused, hallucinating saw person who was not there. 98% room air, hr 88. 0.1 precidex started again.
--- NOTE | 2024-09-02 20:00 | NUR ---
PATIENT IN BED RESTING. NURSE COMPLETED VITAL SIGNS AND ASSESSMENT. VITAL SIGNS WNL. PATIENT AFEBRILE. PATIENT SLEEPING, ON PRECEDEX, EASILY AWAKENED. PATIENT'S CIWA SCORE - 8. PATIENT'S GIRLFRIEND AND PATIENT'S MOTHER AT BEDSIDE. MEDICATION GIVEN ORDERED. CALL LIGHT AND BEDSIDE TABLE WITHIN REACH.
--- NOTE | 2024-09-02 21:00 | NUR ---
PATIENT APPROPRIATELY USED CALL LIGHT FOR ASSISTANCE. PATIENT DESIRED TO USE BATHROOM. PRECEDEX PAUSED AND IV TUBING DISCONNECTED FROM PATIENT. PATIENT GOT UP WITH ONE PERSON ASSISTANCE. PATIENT AMBULATED TO BATHROOM (ONE PERSON ASSISTANCE). GAIT STEADY. PATIENT VOIDED AND HAD ONE EPISODE OF LOOSE STOOL. PATIENT'S GIRLFRIEND ASSISTED PATIENT WITH PERICARE THEN ASSISTED PATIENT BACK INTO BED. PATIENT DENIED HAVING ANY HEADACHE, PAIN OR NAUSEA. PATIENT'S GIRLFRIEND ASSISTED PATIENT WITH ORAL CARE. PATIENT BRUSHING TEETH WITH ASSISTANCE. CALL LIGHT AND BEDSIDE TABLE WITHIN REACH. CIWA SCORE - 8. PRECEDEX RESTARTED.
[2024-09-03] VITALS (17 sets, daily range): BP systolic 87–124; BP diastolic 42–91
--- NOTE | 2024-09-03 | NUR ---
PATIENT IN BED SLEEPING. EASILY AWAKENED. PATIENT ALERT TO SELF. CONFUSED, FORGETFUL. VITAL SIGNS STABLE; AFEBRILE. DENIES COMPLAINT OF NAUSEA OF PAIN. CIWA - 8. PATIENT REMAINS ON PRECEDEX GTT. CALL LIGHT AND BEDSIDE TABLE WITHIN REACH.
--- NOTE | 2024-09-03 04:00 | NUR ---
IV TO RIGHT AC SLUGGISH TO FLUSH. IV SITE IS POSITIONAL. PRECEDEX GTT PAUSED AT THIS TIME. PATIENT'S CIWA SCORE - 5
--- NOTE | 2024-09-03 04:15 | NUR ---
PATIENT SLEEPING. RASS -1; PATIENT DROWSY, EASILY AWAKENED. VITAL SIGNS TAKEN. AFEBRILE, VITAL SIGNS STABLE AND WNL FOR PATIENT. CIWA SCORE - 5. PRECEDEX GTT PAUSED. PATIENT HAS EXTERNAL MALE PUREWICK. URINE IS DARK YELLOW IN COLOR; 400 MLS OF URINE EMPTIED. PATIENT DENIES PAIN, DISCOMFORT OR NAUSEA. PAIENT IS CONFUSED TO DATE AND SITUATION AT THIS TIME. CALL LIGHT AND BEDSIDE TABLE WITHIN REACH. PATIENT'S GIRLFRIEND AND PATIENT'S MOTHER REMAIN AT BEDSIDE.
[2024-09-03 05:43] LABS: BASOPHILS 2.4 % (0-2); HEMATOCRIT 38.7 % (35.0-50.0); HEMOGLOBIN 13.3 g/dL (12.0-18.0); LYMPHOCYTES 11.4 % (24-44); MCH 34.8 (27-36); MCHC 34.5 g/dl (30-36); MCV 100.9 fl (81-99); MONOCYTES 18.4 % (0-12); NEUTROPHILS 65.8 % (39-80); PLATELET COUNT 68 K/uL (140-440); RBC 3.83 M/ul (4.3-5.7); RDW 15.5 (10.5-15.0)
[2024-09-03 05:50] LABS: INR 1.69 (0.80-1.30)
[2024-09-03 05:56] LABS: ALBUMIN 2.4 g/dL (3.4-5.0); ALBUMIN/GLOBULIN RATIO 0.44 (1.1-2.4); BILIRUBIN, TOTAL 8.2 ng/dL (0.2-1.0); BUN/CREATININE RATIO 9.75 (6.0-28.6); CALCIUM 9.2 mg/dL (8.5-10.1); CREATININE, SERUM 0.82 mg/dL (0.70-1.30); PROTEIN, TOTAL 7.8 g/dL (6.4-8.2)
[2024-09-03 06:47] LABS: HAPTOGLOBIN 64 mg/dL (30-200)
--- NOTE | 2024-09-03 07:30 | NUR ---
Report received from Sejal FLOYD. Patient resting in bed, requests orange juice and ice water, provided. No further needs at this time, will continue plan of care.
--- NOTE | 2024-09-03 08:05 | NUR ---
Medications administered. Pt walks to BR for void. Large incontinent, liquid stool in bed, linens and gown changed, patient provided with bath wipes. New attends in place. Urine dark in color. Patient alert to place, self, slightly confused with regards to event. Mostly steady gait, few instances of patient appearing dizzy/unsteady, requires SBA to ambulate. Up to recliner for breakfast. Denies headache, nausea, hallucinations. Mild tremors noted.
--- NOTE | 2024-09-03 08:30 | NUR ---
Patient back to bed, mild tremors continue. Patient does appear slightly jaundiced.
--- NOTE | 2024-09-03 09:09 | NUR ---
In room for medication administration, patient IV to L AC no longer patent. New 20g in L hand, patient tolerated well. IV ABX infusing. Patient girlfriend and mother in room, attentive to patient and engaged in care. Pt states no needs at this time. Call light in reach.
--- NOTE | 2024-09-03 09:45 | NUR ---
Patient saline locked after ABX completed. Pt denies needs at this time. States feeling "sleepy", lights dimmed and allowed to rest at this time.
--- NOTE | 2024-09-03 11:00 | NUR ---
Rounded with patient after working with physical therapy. Standing weight obtained. BP and HR stable.
--- NOTE | 2024-09-03 12:15 | NUR ---
Call light answered, patient states needing to use BR for BM, once back to bed requests "more of the withdrawal medicine", CIWA 10 at this time for tremors, headache, light sensitivity and nausea. Administered per order. Lunch tray delivered and pt states no further needs.
--- NOTE | 2024-09-03 13:12 | NUR ---
UR CONCURRRENT REVIEW: [facility]- [facility]ETS INPT CRITERIA FOR FOR AMS AND LIVER DISEASE. VARIANCE FOR GL DAY 2 ENTERED ODS [facility] INPT 08/31/24 @ 1701 ORDER MATCHES REG AUTH PENDING, UPDATED CLINICALS SENT VIA RIGHTFAX DISCHARGE PENDING FURTHER EVALUATION 09/06/24
--- NOTE | 2024-09-03 14:45 | NUR ---
Pt sleeping, not awakened.
--- NOTE | 2024-09-03 15:06 | NUR ---
PT CURRENTLY RESTING IN BED AT THIS TIME. SLEEPING WITH GIRLFRIEND AT BEDSIDE. ALLOWED TO REST AT THIS TIME. CALL LIGHT WITHIN REACH.
--- NOTE | 2024-09-03 16:17 | NUR ---
PT RESTING, AWAKENED AT THIS TIME TO TAKE LACTULOSE - SEE MAR. REQUESTING TO CONTINUE TO SLEEP, TV ON BUT NOT WATCHING AT THIS TIME. ASKED IF WHEN DINNER COMES IF HE WANTS TO GET UP IN CHAIR BUT HE FELL ASLEEP. GIRLFRIEND SAID HE WILL JUST SLEEP AT THIS TIME.
--- NOTE | 2024-09-03 17:56 | NUR ---
PT AWAKE, GIRLFRIEND ASSISTED UP TO THE BATHROOM, PT HAD STEADY GAIT. SPONGE BATH GIVEN AND PT FEELS MUCH BETTER. BEDDING/LINEN CHANGED OUT BY THIS RN. PT IS VERY APPROPRIATE/POLITE THIS EVENING. DINNER TRAY DELIVERED TO ROOM. DENIES ANY NEEDS, APPEARS TO BE CALM, TREMORS ARE NOT VISIBLE BUT CAN BE FELT SLIGHTLY. DENIES HEADACHE/NAUSEA AT THIS TIME, EATING DINNER. CALL LIGHT WITHIN REACH, NO FURTHER NEEDS AT THIS TIME.
--- NOTE | 2024-09-03 19:48 | NUR ---
PATIENT ASSESSMENT COMPLETE, PATIENT SCORED A 9 ON CIWA, ATIVAN PRN ADMINISTERED. HE HAS NO FURTHER NEEDS OR CONCERNS AT THIS TIME, HIS SIGNIFICANT OTHER KENTRELL IS AT BEDSIDE AND SHE REPORTS NO NEEDS OR QUESTIONS AT THIS TIME. PATIENT COOPERATIVE WITH CARES.
--- NOTE | 2024-09-03 21:42 | NUR ---
PATIENT RESTING IN BED, EYES CLOSED RESP RATE 18/MIN, NO DISTRESS NOTED AT THIS TIME, SIGNIFICANT OTHER AT BEDSIDE.
--- NOTE | 2024-09-03 22:45 | NUR ---
PATIENT UP TO BATHROOM TO HAVE BM, VOIDED 800ML URINE. WITH STANDBY ASSIST, THEN PATIENT ASKED IF HE COULD GO ON A WALK. THIS RN AND PATIENTS SIGNIFICANT OTHER EMMANUEL AMBULATED WITH PATIENT FULL LAP ON MED/SURG UNIT AND THEN BACK TO BED. CIWA 4 AT THIS TIME. PATIENT TOLERATED ACTIVITY WELL. HE SAID, "FELT GOOD TO GET OUT OF THAT BED AND MOVE."
--- NOTE | 2024-09-03 23:32 | NUR ---
PATIENT CONSUMED PEANUT BUTTER COOKIE FROM VENDING MACHINE AND BOTTLE OF MILK.
--- NOTE | 2024-09-03 23:57 | NUR ---
PATIENT SITTING UP IN BED WATCHING SHOW ON CELL PHONE WITH KENTRELL SIGNIFICANT OTHER. PATIENT REPORTS NO NEEDS AT THIS TIME.
[2024-09-04] VITALS (12 sets, daily range): BP systolic 101–137; BP diastolic 55–99
--- NOTE | 2024-09-04 01:14 | NUR ---
PATIENT USED CALL LIGHT TO REPORT ITCHINESS TO LEFT POSTERIOR SHOULDER. REQUESTED "NEOSPORIN". NO RASH OR ABRASIONS NOTED. SKIN APPEARS DRY. LOTION APPLIED BY THIS RN. REQUESTED PATIENT NOTIFY NURSING IF NO RELIEF.
--- NOTE | 2024-09-04 02:34 | NUR ---
ROUNDING PATIENT NOTED TO BE SNORING, REPLACED OXYGEN SATURATION PROBE BACK TO HIS FINGER, 99% OXYGEN SATURATION ON ROOM AIR, EMMANUEL SIGNIFICANT OTHER RESTING ON COUCH IN ROOM.
--- NOTE | 2024-09-04 03:22 | NUR ---
PATIENT CALLED NURSES STATION FOR ASSISTANCE TO THE BATHROOM, PATIENT VOIDED 300ML IN URINAL THEN MISSED SOME ON TO THE FLOOR, HAD BM LIQUID, SOILED DEPENDS AND BM IN TOILET WELL. PATIENT TOLERATED ACTIVITY WELL, THEN BACK TO BED, HE ASKED, "CAN GET SOMETHING FOR SLEEP?" THIS RN SAID, "I DONT HAVE ANYTHING ORDER SLEEP AID, NOR WOULD THE DOCTOR LIKELY ORDER ANYTHING FOR THIS TIME IN THE MORNING." PATIENT SAID, "THATS OK, THANKS ANYWAY." PATIENT HAS NO FURTHER REQUESTS OR CONCERNS AT THIS TIME.
--- NOTE | 2024-09-04 05:06 | NUR ---
PATIENT UP TO BATHROOM TO VOID. STANDBY ASSIST FOR LINE MANAGEMENT. NO NEW CONCERNS OR REQUESTS AT THIS TIME.
[2024-09-04 05:24] LABS: BASOPHILS 2.4 % (0-2); HEMATOCRIT 34.6 % (35.0-50.0); LYMPHOCYTES 13.1 % (24-44); MCH 34.5 (27-36); MCHC 34.8 g/dl (30-36); MCV 99.1 fl (81-99); MONOCYTES 17.7 % (0-12); NEUTROPHILS 64.8 % (39-80); PLATELET COUNT 69 K/uL (140-440); RBC 3.49 M/ul (4.3-5.7); RDW 15.1 (10.5-15.0)
[2024-09-04 05:32] LABS: INR 1.78 (0.80-1.30); PROTIME 20.3 Sec (11.2-14.2)
[2024-09-04 05:39] LABS: ALBUMIN 2.3 g/dL (3.4-5.0); ALBUMIN/GLOBULIN RATIO 0.47 (1.1-2.4); ANION GAP 12.7 (7-21); BUN/CREATININE RATIO 13.69 (6.0-28.6); CALCIUM 8.7 mg/dL (8.5-10.1); CREATININE, SERUM 0.73 mg/dL (0.70-1.30); POTASSIUM 3.7 mmol/L (3.5-5.1); PROTEIN, TOTAL 7.2 g/dL (6.4-8.2)
--- NOTE | 2024-09-04 07:05 | NUR ---
PATIENT UP TO BATHROOM TO VOID AND BRUSH TEETH. AMBULATES WELL INDEPENDENTLY TO BATHROOM WITH LINE MANAGEMENT. PATIENT REPORTS FEELING ANXIOUS AND AGITATED, TREMORS VISIBLE HANDS, FIGITING, AND RESTLESS, CIWA 10, ATIVAN PRN ADMINISTERED. PATIENTS SIGNIFICANT OTHER AT BEDSIDE HER NAME IS KENTRELL.
--- NOTE | 2024-09-04 07:20 | NUR ---
REPORT RECEIVED FROM MAIL DELIVERER RN. PATIENT RESTING IN BED, GIRLFRIEND AT BEDSIDE. PATIENT DENIES ANY NEEDS AT THIS TIME. CALL LIGHT WITHIN REACH.
--- NOTE | 2024-09-04 08:15 | NUR ---
CALL LIGHT ANSWERED. PATIENT ASKING TO GO FOR A WALK. RN WALKED WITH PATIENT AROUND MED SURG UNIT AND BACK TO CCU ROOM. PATIENT TOLLERATED WELL. DENIED ANY CHEST PAIN OR SOB WHILE WALKING. ALERT AND ORIENTED TO PERSON, PLACE, SITUTATION AND TIME. YELLOWING OF SCLERA NOTED. VSS, AFEBRILE, HR SLIGHTLY TACHY LOW 100'S. LUNGS CTA, DIM IN BASES. ABD SOFT NON TENDER ACTIVE BOWEL TONES X 4 QUADRANTS. PATIENT DENIES ANY PAIN AT THIS TIME. NOTED SCATTERED BRUISING THROUGHOUT BODY. AM MEDICATION ADMINSTERED. PATIENT EATING BREAKFAST AT THIS TIME. DENIES ANY FURTHER NEEDS. CALL LIGHT WITHIN REACH. GIRLFRIEND AT BEDSIDE.
[2024-09-04] MEDS ORDERED: LACTULOSE 20 GM/30 ML CUP PO SCH (09:00)
--- NOTE | 2024-09-04 09:08 | NUR ---
IV SITE WNL. IV ABX HUNG. PATIENT ASSISTED TO BATHROOM. NOTED ONE UNMEASURED VOID. PATIENT BACK IN BED. DENIES ANY FURTHER NEEDS AT THIS TIME. CALL LIGHT WITHIN REACH.
[2024-09-04] MEDS ORDERED: LORazepam 2 MG/ML VIAL IV/IM PRN (09:15)
--- NOTE | 2024-09-04 10:14 | NUR ---
PATIENT RESTING IN BED WITH FAMILY AT BEDSIDE. RESPIRATIONS EVEN AND UNLABORED. CALL LIGHT WITHIN REACH.
--- NOTE | 2024-09-04 10:44 | NUR ---
PATIENT OOB TO BATHROOM. INDEPENDENT TRNASFER TO BATHROOM. NOTED LOOSE BM. PATIENT BACK IN BED. DENIES ANY NEEDS AT THIS TIME CALL LIGHT WITHIN REACH.
--- NOTE | 2024-09-04 13:20 | NUR ---
PATIENT AMBULATED OVER TO MED/SURG UNIT. REPORT GIVEN TO MED/SURG NURSE.
--- NOTE | 2024-09-04 13:32 | NUR ---
Patient to the medical floor. Patient is awake, alert and oriented x3. Patient denies auditory/visual hallucinations. PT also denies pain. Vital signs stable, afebrile. Girlfriend at bedside. Bed alarm intact. Patient instructed to call if he has needs, pt appears receptive to plan of care.
--- NOTE | 2024-09-04 15:57 | NUR ---
Patient resting in bed, eyes closed, respirations even and non labored. Patient has no notable distress. Patient's girlfriend at bedside resting in chair. No needs at this time, personal supplies and call light within reach.
--- NOTE | 2024-09-04 17:54 | NUR ---
Patient sitting up eating dinner, no distress. Patient denies pain and or needs. Personal supplies and call light within reach. Pt's girlfriend remains at bedside.
--- NOTE | 2024-09-04 18:28 | NUR ---
ATIVAN 1MG IV ADMIN AT THIS TIME FOR CIWA SCORE OF 9. PATIENT HAS NOTABLE TREMORS IN HANDS AND IS A BIT DIAPHORETIC. VITAL SIGNS ARE STABLE, AFEBRILE.
--- NOTE | 2024-09-04 19:04 | NUR ---
SHIFT REPORT RECEIVED PER CLAUDE FLOYD, GIRLFRIEND AT BEDSIDE.
--- NOTE | 2024-09-04 19:12 | NUR ---
PT ASLEEP, RESP EVEN AND REG, GIRLFRIEND AT BEDSIDE, RESP EVEN AND REG. BED LOW POSITION. LIGHTS ON IN ROOM, SIDE RAILS UP X 2.
--- NOTE | 2024-09-04 20:30 | NUR ---
PT RESTING QUIETLY WITH EYES CLOSED, AWAKENS TO NAME, DROWSY BUT ALERT AND ORIENTENED, DENIES PAIN AT THIS TIME, ASSESSMENT DONE, CIWA 1 FOR NON VISABLE FELT TREMORS IN HANDS, SL PATENT IN LEFT WRIST, FLUSHES WELL, RT LACTULOSE GIVEN PER ORDER, PT ABLE TO DRINK WATER WITHOUT DIFFICULTY, SIDE RAILS UP X 2, GIRL FRIEND REMAINS AT BEDSIDE, WARM BLANKET GIVEN TO PT, PT BACK TO SLEEP AFTER A FEW MOMENTS.
--- NOTE | 2024-09-04 22:00 | NUR ---
PT APPEARS TO SLEEP, RESP EVEN AND REG, WITHOUT DISTRESS.
--- NOTE | 2024-09-04 23:00 | NUR ---
FAMILY INTO VISIT PT, PT AWAKE, ALERT, DROWSY BUT DENIES PAIN, OR TREMORS, OR OTHER SIGNS OF W/D AT THIS TIME.
--- NOTE | 2024-09-04 23:35 | NUR ---
SOME OF FAMILY VISITORS LEFT FOR THE NIGHT, PT UP IN BATHROOM WITH GIRLFRIEND AT SIDE, PT VOIDED BUT MISSED MEASURMENT, PT DENIES DIZZINESS BUT ALERT, BUT FINE TREMORS NOTED, PT ENCOURAGED TO ONLY TAKE A SHORT SHOWER THEN BACK TO BED, INSTRUCTED TO USE CALL LIGHT, GIRLFRIEND ASSISTING WITH SHOWER.
[2024-09-05] VITALS (12 sets, daily range): BP systolic 112–129; BP diastolic 61–88
--- NOTE | 2024-09-05 00:07 | NUR ---
AUGUSTINE BOX PROVIDED PER pt REQUEST.
--- NOTE | 2024-09-05 00:32 | NUR ---
PT FINISHING SANDWICH BOX, PT SL REDRESSED AFTER SHOWER, SITE INTACT, PT MEDICATED WITH ATIVAN 1MG SLOW IV FOR CIWA OF 8, PT BACK TO BED, LOOKING AT PHONE, GIRLFRIEND AND OTHER AT BEDSIDE, PT WITHOUT OTHER REQUESTS.
--- NOTE | 2024-09-05 00:50 | NUR ---
bed alarm set off, pt sitting up at bedside, "sitting up and streching legs" laying back in bed after ten mins, bed alarm remains off at this time, pt however is visible via the nurse's station
--- NOTE | 2024-09-05 02:00 | NUR ---
PT RESTING QUIETLY, RESP EVEN AND REG, WITHOUT SIGNS OF DISTRESS.
--- NOTE | 2024-09-05 03:44 | NUR ---
PT NOTED TO BE STANDING AT SLIDING GLASS DOOR AND APPEARS TO BE ATTEMPTING TO OPEN CURTAIN, NURSE TO ROOM, PT STATES HE NEEDS SOME MEDICINE BECAUSE HE IS FEELING SHAKY WITH HEADACHE AND ANXIETY, PT BACK TO BED, CIWA 9, PT MEDICATED WITH 1MG ATIVAN IV PER ORDER, PT ATTEMPTING TO REST, EYES CLOSED, FAMILY MEMBERS REMAIN AT BEDSIDE RESTING. BED ALARM PLACED ON. SL INTACT.
--- NOTE | 2024-09-05 03:50 | NUR ---
VS STABLE, PT REQUESTING CHIPS FOR A SNACK, RESTING QUIETLY, NO TREMORS NOTED AT REST, RESP EVEN AND REG.
--- NOTE | 2024-09-05 05:00 | NUR ---
PT RESTING QUIETLY, RESP EVEN AND REG, AWAKENS BRIEFLY WHEN NURSE ENTERS THE ROOM, WITHOUT REQUESTS, BACK TO SLEEP.
[2024-09-05 05:23] LABS: BASOPHILS 2.2 % (0-2); EOSINOPHILS 1.9 % (0-6); HEMATOCRIT 35.7 % (35.0-50.0); HEMOGLOBIN 12.2 g/dL (12.0-18.0); LYMPHOCYTES 16.3 % (24-44); MCH 34.3 (27-36); MCHC 34.3 g/dl (30-36); MCV 100.2 fl (81-99); MONOCYTES 19.6 % (0-12); PLATELET COUNT 74 K/uL (140-440); RBC 3.56 M/ul (4.3-5.7); RDW 15.5 (10.5-15.0)
[2024-09-05 05:34] LABS: INR 1.69 (0.80-1.30)
[2024-09-05 05:42] LABS: ALBUMIN 2.4 g/dL (3.4-5.0); ALBUMIN/GLOBULIN RATIO 0.47 (1.1-2.4); ANION GAP 11.9 (7-21); BILIRUBIN, TOTAL 5.5 ng/dL (0.2-1.0); BUN/CREATININE RATIO 11.11 (6.0-28.6); CREATININE, SERUM 0.81 mg/dL (0.70-1.30); POTASSIUM 3.9 mmol/L (3.5-5.1); PROTEIN, TOTAL 7.5 g/dL (6.4-8.2)
--- NOTE | 2024-09-05 06:40 | NUR ---
PT APPEARS TO SLEEP, RESP EVEN AND REG, LAYING ON SIDE, FAMILY REMAINS AT BEDSIDE.
--- NOTE | 2024-09-05 07:28 | NUR ---
PT RESTING SOUNDLY AT TIME OF SHIFT REPORT, LEFT UNDISTURBED. VISITORS X2 PRESENT IN THE ROOM. CALL LIGHT AND FRESH H2O AT BEDSIDE
--- NOTE | 2024-09-05 08:15 | NUR ---
PT SITTING UP EATING MORNING MEAL DENIES NEEDS OF ANYTHING
--- NOTE | 2024-09-05 09:44 | NUR ---
PT ASKED FOR ATIVAN AND DR IN ROOM TO ASSESS. INCREASED ATIVAN DOSE AND EXPLAINED TO PT THAT HE APPEARS TO STILL BE WITHDRAWLING. PT FIDGETY AND WANTS TO BE DISCHARGED.
[2024-09-05] MEDS ORDERED: PHENOBARBITAL SOD 130 MG/ML VIAL IV ONE (09:45)
[2024-09-05] MEDS ORDERED: LORazepam 2 MG/ML VIAL IV/IM PRN (09:45)
--- NOTE | 2024-09-05 10:03 | NUR ---
ADMINISTERED PHENO ORDERED PT TOLERATED WELL. EXPLAINED SS TO WATCH FOR AND TOLD TO CALL IF GETTING UP. MOM AND GF IN ROOM.
--- NOTE | 2024-09-05 10:09 | NUR ---
Independent use of bathroom. Charge nurse Miracle gave medicine that might make the patient drowsy and dizzy. Patient was informed to call for any needs.
--- NOTE | 2024-09-05 10:15 | NUR ---
PT IS SITTING UP IN BED VISITING WITH G/F AND WATCHING TV. HE IS JOVIAL AND INTERACTIVE. NO EVIDENCE OF ANXIETY OR DISCOMFORT AT THIS TIME THOUGH TREMORS ARE PRESENT
--- NOTE | 2024-09-05 11:42 | NUR ---
PT RESTING ON THE BED GIRLFRIEND IS PRESENT. HE STATES HE PUT HIS HAND IN HIS POCKET, ACCIDENTALLY DISLODGED HIS SL
--- NOTE | 2024-09-05 12:22 | NUR ---
PT SITTING UP ON THE EDGE OF THE BED WITH NOON MEAL, DENIES NEEDS OF. CONTINUES TO BE CALM AND COOPERATIVE
--- NOTE | 2024-09-05 13:44 | NUR ---
Patient independent in bathroom. They moved slowly back to bed but reported no dizziness.
--- NOTE | 2024-09-05 14:47 | NUR ---
PT RESTING EYES CLOSED GIRLFRIEND REMAINS AT BEDSIDE
--- NOTE | 2024-09-05 16:29 | NUR ---
PT REPORTS INCREASED ANXIETY REQUESTS ATIVAN. MED ADMINISTERED. MOTHER REMAINS PRESENT WITH PT AT THIS TIME HE PACES IN THE ROOM. HE CONTINUES TO BE COOPERATIVE.
--- NOTE | 2024-09-05 17:52 | NUR ---
PT RESTING EYES CLOSED BLANKETS OVER HIS HEAD. REFUSES TO GET UP FOR MEAL TIME, REPOSITIONS AND CONTINUES RESTING.
--- NOTE | 2024-09-05 19:23 | NUR ---
REPORT RECIEVED FROM DAY SHIFT RN. PATIENT RESTING IN BED. DENIES NEEDS AT THIS TIME. CALL LIGHT IN REACH.
--- NOTE | 2024-09-05 19:58 | NUR ---
PATIENT REQUESTING PRN ATIVAN. THIS RN COMPLETED A CIWA AND PATIENT SCORED 6. PRN ATIVAN ADMINISTERED. IV FLUSHES WNL. SCHEDULED MEDICATION ADMINISTERED. VS OBTAINED AND RECORDED. PATIENT DENIES FURTHER NEEDS. CALL LIGHT IN REACH.
--- NOTE | 2024-09-05 22:15 | NUR ---
PATIENT RESTING IN BED ON BACK WITH EYES CLOSED. RESPIRATONS EVEN AND UNLABORED. CALL LIGHT IN REACH. FAMILY IN ROOM.
--- NOTE | 2024-09-06 00:08 | NUR ---
PATIENT RESTING IN BED. THIS RN SCORED 2 ON CIWA ASSESSMENT. PATIENT FEELING ANXIOUS AND WOKE UP SWEATY. ATIVAN ADMINSITERED PER PATIENT REQUEST. PATIENT DENIES FURTHER NEEDS AND STATED HE WOULD CALL IF HE NEEDED ANYTHING. CALL LIGHT IN REACH.
--- NOTE | 2024-09-06 01:47 | NUR ---
PATIENT RESTING IN BED WITH EYES CLOSED. RESPIRATIONS EVEN AND UNLABORED. CALL LIGHT IN REACH.
[2024-09-06 03:44] VITALS: BP 118/65
[2024-09-06 03:45] VITALS: BP 118/65
--- NOTE | 2024-09-06 03:47 | NUR ---
PATIENT RESTING IN BED. CIWA SCORE IS 4 AT THIS TIME. ATIVAN ADMINISTERED. VS AND I&Os OBTAINED AND RECORDED. PATIENT DENIES FURTHER NEEDS AT THIS TIME. CALL LIGHT IN REACH.
[2024-09-06 05:36] LABS: EOSINOPHILS 1.6 % (0-6); HEMATOCRIT 35.9 % (35.0-50.0); HEMOGLOBIN 12.3 g/dL (12.0-18.0); LYMPHOCYTES 13.7 % (24-44); MCH 34.4 (27-36); MCHC 34.4 g/dl (30-36); MCV 100.1 fl (81-99); MONOCYTES 17.9 % (0-12); NEUTROPHILS 64.8 % (39-80); PLATELET COUNT 87 K/uL (140-440); RBC 3.59 M/ul (4.3-5.7); RDW 15.3 (10.5-15.0)
[2024-09-06 05:45] LABS: INR 1.67 (0.80-1.30); PROTIME 18.9 Sec (11.2-14.2)
[2024-09-06 05:50] LABS: ALBUMIN 2.5 g/dL (3.4-5.0); ALBUMIN/GLOBULIN RATIO 0.48 (1.1-2.4); ANION GAP 9.9 (7-21); BILIRUBIN, TOTAL 4.9 ng/dL (0.2-1.0); BUN/CREATININE RATIO 10.12 (6.0-28.6); CALCIUM 8.6 mg/dL (8.5-10.1); CREATININE, SERUM 0.79 mg/dL (0.70-1.30); POTASSIUM 3.9 mmol/L (3.5-5.1); PROTEIN, TOTAL 7.7 g/dL (6.4-8.2)
--- NOTE | 2024-09-06 07:18 | NUR ---
PT RESTING EYES CLOSED AT TIME OF SHIFT REPORT, FAMILY IN THE ROOM. LEFT UNDISTURBED. CALL LIGHT AND FRESH H20 ON BEDSIDE TABLE
--- NOTE | 2024-09-06 08:22 | NUR ---
PT UP ON THE EDGE OF BED EATING MORNING MEAL. REQUESTS ATIVAN, ADMINISTERED. PT DENIES OTHER NEEDS OF. AGREES HE SLEPT WELL FAMILY REMAIN PRESENT
--- NOTE | 2024-09-06 08:25 | NUR ---
PATIENT IN BED AT THIS TIME. SET UP MECHANIC CROWN ASSEMBLY MACHINE WENT INTO PATIENTS ROOM FOR HOURLY ROUNDS. CALL LIGHT WITHIN REACH, NO FURTHER NEEDS AT THIS TIME.
--- NOTE | 2024-09-06 09:07 | NUR ---
PT RESTING SUPINE AFTER MORNING MEAL. FAMILY ASK WHEN DOCTOR WILL BE IN. PT DENIES NEEDS OR DISCOMFORTS AT THIS TIME
[2024-09-06 09:28] VITALS: BP 119/64
--- NOTE | 2024-09-06 10:15 | NUR ---
UR CONCURRENT REVIEW: [facility] DAY 2 [facility] 08/31/24 @ 4520 ORDER MATCHES REG UPDATED CLINICALS SENT TO [facility] PLAN TO DISCHARGE TODAY PENDING [facility] ASSESSMENT AND POSSIBLE DETOX PLACEMENT
[2024-09-06 10:24] VITALS: BP 119/64
--- NOTE | 2024-09-06 10:25 | NUR ---
PT RESTING IN BED TALKING WITH HIS GIRLFRIEND DENIES NEEDS. FRESH H20 TO BEDSIDE
--- NOTE | 2024-09-06 10:35 | NUR ---
PATIENT IN BED AT THIS TIME. HOSPITAL UNIT COORDINATOR CHARTED VITALS AND I&O'S. CALL LIGHT WITHIN REACH, NO FURTHER NEEDS AT THIS TIME.
--- NOTE | 2024-09-06 11:12 | NUR ---
DR RG IN TO SEE PT. HE WANTS TO BE DC'D, PT ENCOURAGED TO STAY TO SPEAK WITH [facility] WHO WILL BE HERE LATER TODAY. PT DECLINES STATES HE IS READY TO GO NOW AND WILL F/U AN OUT PT. FAMILY ARE PRESENT AND SUPPORTIVE
--- NOTE | 2024-09-06 11:30 | NUR ---
FACESHEET FAXED TO [facility]. THEY ARE UNABLE TO SEE PATIENT TODAY. HE IS WANTING TO DC TO HOME.
[2024-09-06] MEDS ORDERED: VITAMIN B-1100 MG PO (11:45)
[2024-09-06] MEDS ORDERED: FOLIC ACID1 MG PO (11:45)
== END 2024-09-06 12:05 | disposition home or self-care (01) | DRG 441 ==
LOC: ED 14:42 → CCU 17:01 → MS 17:01
PROVIDERS: Emergency Medicine; ADMIT Student in an Organized Health Care Education/Training Program; ATTEND Family Medicine
PROC: HZ2ZZZZ Detoxification Services for Substance Abuse Treatment (ICD-10-PCS; principal; 2024-08-31)
DX: K76.82 Hepatic encephalopathy (principal); K72.00 Acute and subacute hepatic failure without coma; F10.239 Alcohol dependence with withdrawal, unspecified; N39.0 Urinary tract infection, site not specified; K70.10 Alcoholic hepatitis without ascites; D69.6 Thrombocytopenia, unspecified; F32.A Depression, unspecified; F41.9 Anxiety disorder, unspecified; I10 Essential (primary) hypertension
CPT/HCPCS: 36415; 36430; 36592; 70450; 71260; 74177; 76705; 80053; 80074; 80307; 82140; 82247; 82248; 83010; 83615; 83735; 84439; 85025; 85060; 85379; 85384; 85610; 86850; 86900; 86901; 86922; 97161; 97165; 97530; A9270; G0480; J0132; J0696; J2060; J2405; J2560; J3411; J3480; J7030; J7060; J7070; J7121; P9035; Q9967

== ENCOUNTER 2024-09-21 09:24 | Emergency (ER) | payer OTHER ==
[~2024-09-21] VITALS: Ht 180.3 cm; Wt 77.3 kg
[~2024-09-21 09:24] MED LIST changes: +FOLIC ACID1 MG PO; +TRAZODONE HCL50 MG PO; +VITAMIN B-1100 MG PO
--- OUTSIDE RECORDS SUMMARY | 2024-09-21 09:27 | XMS ---
PreManage Notification: LINDA MCCLENDON Security New Car Driver Events No recent Security Events currently on file CRITERIA MET - Group Notification - [facility] - 2 Visits in 30 Days CARE PROVIDERS -[facility]ist: [facility] Puncher Terri Sauceda PHONE: [phone] -[facility]ist: [facility] Current [facility] PHONE: [phone] -[facility]- Dentist: Cow Puncher Current [facility] PHONE: [phone] [facility] Clinic/Center: [facility] PHONE: [phone] [place] has no Care Guidelines for this patient. [facility] VISIT COUNT (12 MO.) 4 [facility] TOTAL 4 NOTE: Visits indicate total known visits. ED/UCC VISIT TRACKING (12 MO.) 09/21/2024 09:24 [facility] TYPE: Emergency COMPLAINT: - ALCOHOL WITHDRAWAL 08/31/2024 14:43 [facility] TYPE: Emergency COMPLAINT: - FEVER/HALLUCINATIONS 08/31/2024 08:32 [facility] TYPE: Emergency COMPLAINT: - SLEEP PROBLEM DIAGNOSES: - Alcohol abuse with withdrawal, unspecified - Essential (primary) hypertension - Hepatic failure, unspecified without coma - Insomnia, unspecified - Other sleep disorders 05/15/2024 22:24 [facility] [place] TYPE: Emergency COMPLAINT: - WEAKNESS DIAGNOSES: - Alcohol abuse with intoxication, unspecified - Blood alcohol level of 240 mg/100 ml or more - Dehydration - Essential (primary) hypertension - Other detention (current) drug therapy - Weakness INPATIENT VISIT TRACKING (12 MO.) 08/31/2024 17:[address] [facility] TYPE: Medical Surgical COMPLAINT: - HEPATIC ENCEPHALOPATHY, ALCOHOL WITHDRAWL DIAGNOSES: - Acute and subacute hepatic failure without coma - Acute and subacute hepatic failure without coma - Alcohol dependence with withdrawal, unspecified - Alcohol dependence with withdrawal, unspecified - Alcoholic hepatitis without ascites - Alcoholic hepatitis without ascites - Altered mental status, unspecified - Anxiety disorder, unspecified - Anxiety disorder, unspecified - Depression, unspecified - Depression, unspecified - Essential (primary) hypertension - Essential (primary) hypertension - Hepatic encephalopathy - Hepatic encephalopathy - Thrombocytopenia, unspecified - Thrombocytopenia, unspecified - Urinary tract infection, site not specified - Urinary tract infection, site not specified [email or web address]
[2024-09-21] MEDS ORDERED: SODIUM CHLORIDE 0.9% 500 ML IV ONE (09:45)
[2024-09-21] MEDS ORDERED: LORazepam 2 MG/ML VIAL IV ONE (09:45)
[2024-09-21 10:09] LABS: BASOPHILS 0.2 % (0-2); HEMATOCRIT 39.3 % (35.0-50.0); HEMOGLOBIN 13.2 g/dL (12.0-18.0); LYMPHOCYTES 17.6 % (24-44); MCH 33.1 (27-36); MCHC 33.5 g/dl (30-36); MCV 98.7 fl (81-99); MONOCYTES 10.4 % (0-12); NEUTROPHILS 70.8 % (39-80); PLATELET COUNT 141 K/uL (140-440); RBC 3.98 M/ul (4.3-5.7); RDW 16.1 (10.5-15.0)
[2024-09-21 10:26] LABS: ALBUMIN 2.8 g/dL (3.4-5.0); ALBUMIN/GLOBULIN RATIO 0.49 (1.1-2.4); ANION GAP 14.5 (7-21); BILIRUBIN, TOTAL 4.4 ng/dL (0.2-1.0); BUN/CREATININE RATIO 8.1 (6.0-28.6); CALCIUM 8.7 mg/dL (8.5-10.1); CREATININE, SERUM 0.74 mg/dL (0.70-1.30); MAGNESIUM 1.7 mg/dL (1.8-2.4); POTASSIUM 3.5 mmol/L (3.5-5.1); PROTEIN, TOTAL 8.5 g/dL (6.4-8.2)
[2024-09-21] MEDS ORDERED: NALTREXONE HCL50 MG PO (11:03)
[2024-09-21] MEDS ORDERED: TRAZODONE HCL50 MG PO (11:12)
[2024-09-21 12:12] VITALS: BP 104/69
== END 2024-09-21 12:27 | disposition home or self-care (01) ==
LOC: ED 09:24
PROVIDERS: Emergency Medicine
DX: F10.129 Alcohol abuse with intoxication, unspecified (principal); Y90.8 Blood alcohol level of 240 mg/100 ml or more; I10 Essential (primary) hypertension; K72.90 Hepatic failure, unspecified without coma; Z79.899 Other long term (current) drug therapy
CPT/HCPCS: 36415; 73030; 80053; 82140; 83735; 85025; 96374; 99285-25; G0480; J2060; J7040